=== PATIENT | female | born 2000 | race Asian ===

== ENCOUNTER 2023-05-08 06:34 | Outpatient (REF) | payer MEDICAID, SELFPAY ==
--- NOTE | ~2023-05-08 | US_ITS ---
EXAMINATION: US PELVIS CLINICAL INFORMATION: Pain with intercourse. Check IUD. LMP: 10 days ago COMPARISON: None available. TECHNIQUE: Ultrasound of the pelvis is performed using both transabdominal and transvaginal transducers along with Doppler. Transvaginal imaging is performed due to inadequate visualization transabdominally. FINDINGS: Uterus: The uterus is anteverted and measures 6.4 x 3.4 x 5.0 cm. The endometrial thickness is 0.3 cm. The IUD appears in proper position. The uterus is smooth in contour and has normal myometrial echogenicity. No visible fibroid. Adnexa: Both ovaries are visualized. There is normal color flow to the adnexa. There is no ovarian torsion. There is no pelvic ascites or fluid collection. Right ovary measures 2.5 x 1.8 x 2.3 cm. Volume 5.5 mL. Left ovary measures 2.7 x 2.0 x 2.1 cm. Volume 6.1 mL. US/US pelvic and transvaginal IMPRESSION: 1. Normal uterus and ovaries. 2. The IUD appears in proper position.
== END 2023-05-08 06:35 | disposition home or self-care (01) ==
LOC: HO.UMASIMG 06:34
PROVIDERS: Visit Provider Nurse Practitioner Women's Health
DX: Z30.431 Encounter for routine checking of intrauterine contraceptive device (principal); R10.2 Pelvic and perineal pain; N94.10 Unspecified dyspareunia
CPT/HCPCS: 76830; 76856